=== PATIENT | male | born 1935 | race Caucasian/White ===

== ENCOUNTER 2016-07-21 21:34 | Inpatient (IN) | payer OTHER ==
[~2016-07-21] VITALS: Ht 165.1 cm; Wt 70.0 kg
[2016-07-21 21:59] LABS: POINT-OF-CARE METER ID UU14100415
[2016-07-21 23:00] LABS: ADD MIUA? NO; BILIRUBIN NEGATIVE; BLOOD NEGATIVE; COLOR YELLOW ((YELLOW)); GLUCOSE (STRIP) NEGATIVE; KETONES NEGATIVE; LEUKOCYTES NEGATIVE; NITRITE NEGATIVE; PROTEIN (STRIP) NEGATIVE; SPECIFIC GRAVITY 1.011 (1.000-1.030); UROBILINOGEN 0.2 MG/DL (0.2-1.0)
[2016-07-21 23:01] LABS: EOSINOPHIL (%) 0.4 % (0-5); IMMATURE GRANULOCYTE (%) 0.8 % (0.0-0.7); IMMATURE GRANULOCYTE COUNT 0.1 K/uL; INSTRUMENT ABS NEUTROPHIL CT 8.3 K/uL; MCH 29.5 PG (29.0-34.0); MCHC 32.6 G/DL (30.0-36.0); MCV 90.7 FL (86-99); MEAN PLAT.VOLUME 9.7 uM^3 (9.0-12.4); MONOCYTE (%) 7.3 % (3-12); MONOCYTE COUNT 0.7 K/uL (0-0.8); NEUTROPHIL (%) 81.5 % (45-76); NEUTROPHIL COUNT 8.3 K/uL (1.8-6.4); PLATELET COUNT 191 K/uL (156-360); RBC DIS.WIDTH-CV 13.1 % (11.8-14.6); RBC DIS.WIDTH-SD 43.5 % (39-53); RED BLOOD COUNT 3.86 M/uL (4.00-5.50); WHITE BLOOD COUNT 10.2 K/uL (4.1-10.2)
[2016-07-21 23:10] LABS: CHLORIDE 108 mEq/L (99-109); POTASSIUM 4.3 mEq/L (3.7-5.4); SODIUM 139 mEq/L (136-147)
[2016-07-21 23:12] LABS: GLUCOSE 78 mg/dL (70-99); PROTHROMBIN TIME 11.3 (9.2-11.2)
[2016-07-21 23:13] LABS: INTER. NORMALIZED RATIO 1.1
[2016-07-21 23:14] LABS: ANION GAP 8 MEQ/L (2-14)
[2016-07-21 23:16] LABS: GFR ESTIMATE (CALCULATED) 52 mL/min/
[2016-07-21 23:17] LABS: UREA NITROGEN (BUN) 24 mg/dL (9-23)
[2016-07-21 23:23] LABS: TROP-I INTERPRETATION NEGATIVE; TROPONIN-I < 0.01 ng/mL (0.0-0.30)
[2016-07-21 23:28] LABS: POINT-OF-CARE METER ID UU14100415; POINT-OF-CARE USER ID 608261302
[2016-07-22] MEDS ORDERED: LISINOPRIL5 MG PO
[2016-07-22] MEDS ORDERED: SERTRALINE HCL25 MG PO
[2016-07-22] MEDS ORDERED: FUROSEMIDE20 MG PO
[2016-07-22] MEDS ORDERED: PRAVASTATIN SOD80 MG PO (00:01)
[2016-07-22] MEDS ORDERED: LEVEMIR100 UNIT/2 SC (00:01)
[2016-07-22 00:16] LABS: POINT-OF-CARE METER ID UU14100415
[2016-07-22 01:09] LABS: POINT-OF-CARE METER ID UU14100415
[2016-07-22 03:05] LABS: POINT-OF-CARE METER ID UU14100415
[2016-07-22 03:56] LABS: POINT-OF-CARE METER ID UU14100415
[2016-07-22 04:37] VITALS: BP 147/71
[2016-07-22 04:55] LABS: ADD MIUA? NO; BILIRUBIN NEGATIVE; BLOOD NEGATIVE; COLOR YELLOW ((YELLOW)); GLUCOSE (STRIP) NEGATIVE; KETONES NEGATIVE; LEUKOCYTES NEGATIVE; NITRITE NEGATIVE; PROTEIN (STRIP) NEGATIVE; SPECIFIC GRAVITY 1.009 (1.000-1.030); UCUL ADDED? NO; UROBILINOGEN 0.2 MG/DL (0.2-1.0)
[2016-07-22 06:45] LABS: POINT-OF-CARE METER ID UU14174216
[2016-07-22 06:59] LABS: TROP-I INTERPRETATION NEGATIVE; TROPONIN-I < 0.01 ng/mL (0.0-0.30)
[2016-07-22 07:36] VITALS: BP 134/67
[2016-07-22 07:51] LABS: POINT-OF-CARE METER ID UU13113781
[2016-07-22 10:21] LABS: EOSINOPHIL COUNT 0.1 K/uL (0-0.3); HEMATOCRIT 34.9 % (38.0-50.0); IMMATURE GRANULOCYTE (%) 0.5 % (0.0-0.7); IMMATURE GRANULOCYTE COUNT 0.1 K/uL; INSTRUMENT ABS NEUTROPHIL CT 6.6 K/uL; LYMPHOCYTE COUNT 1.6 K/uL (1.0-2.8); MCH 30.1 PG (29.0-34.0); MCV 91.4 FL (86-99); MEAN PLAT.VOLUME 10.1 uM^3 (9.0-12.4); MONOCYTE (%) 9.9 % (3-12); MONOCYTE COUNT 0.9 K/uL (0-0.8); NEUTROPHIL (%) 70.8 % (45-76); NEUTROPHIL COUNT 6.6 K/uL (1.8-6.4); PLATELET COUNT 195 K/uL (156-360); RBC DIS.WIDTH-CV 13.2 % (11.8-14.6); RBC DIS.WIDTH-SD 43.7 % (39-53); RED BLOOD COUNT 3.82 M/uL (4.00-5.50); WHITE BLOOD COUNT 9.3 K/uL (4.1-10.2)
[2016-07-22 10:53] LABS: POINT-OF-CARE METER ID UU13113781
[2016-07-22 10:54] LABS: ANION GAP 9 MEQ/L (2-14); CHLORIDE 104 MEQ/L (99-109); POTASSIUM 4.8 MEQ/L (3.7-5.4); SAMPLE HEMOLYSIS CHECK 0; SAMPLE ICTERIC CHECK 0; SAMPLE LIPEMIA CHECK 0; SODIUM 137 MEQ/L (136-147)
[2016-07-22 11:00] LABS: GFR ESTIMATE (CALCULATED) 56 mL/min/; UREA NITROGEN (BUN) 20 mg/dL (9-23)
[2016-07-22 11:02] LABS: GLUCOSE 223 mg/dL (70-99)
[2016-07-22 12:00] LABS: POINT-OF-CARE METER ID UU14174216
[2016-07-22 12:05] VITALS: BP 138/67
[2016-07-22 13:00] LABS: TROP-I INTERPRETATION NEGATIVE; TROPONIN-I < 0.01 ng/mL (0.0-0.30)
[2016-07-22 14:30] LABS: POINT-OF-CARE METER ID UU14174216
[2016-07-22 16:34] LABS: POINT-OF-CARE METER ID UU14174216
[2016-07-22 16:36] VITALS: BP 132/72
[2016-07-22 19:02] VITALS: BP 138/63
[2016-07-22 20:40] LABS: POINT-OF-CARE METER ID UU14174216
[2016-07-22 23:00] VITALS: BP 138/82
[2016-07-23 03:00] VITALS: BP 128/64
[2016-07-23 07:15] VITALS: BP 156/80
[2016-07-23 07:51] LABS: HEMATOCRIT 36.6 % (38.0-50.0); MCH 29.9 PG (29.0-34.0); MCHC 32.8 G/DL (30.0-36.0); MCV 91.3 FL (86-99); MEAN PLAT.VOLUME 9.9 uM^3 (9.0-12.4); PLATELET COUNT 210 K/uL (156-360); RBC DIS.WIDTH-SD 43.7 % (39-53); RED BLOOD COUNT 4.01 M/uL (4.00-5.50); WHITE BLOOD COUNT 9.5 K/uL (4.1-10.2)
[2016-07-23 07:56] LABS: POINT-OF-CARE METER ID UU14174216
[2016-07-23 08:25] LABS: ANION GAP 7 MEQ/L (2-14); CHLORIDE 106 MEQ/L (99-109); GFR ESTIMATE (CALCULATED) 52 mL/min/; GLUCOSE 158 mg/dL (70-99); POTASSIUM 4.8 MEQ/L (3.7-5.4); SAMPLE HEMOLYSIS CHECK 0; SAMPLE ICTERIC CHECK 0; SAMPLE LIPEMIA CHECK 0; SODIUM 137 MEQ/L (136-147); UREA NITROGEN (BUN) 22 mg/dL (9-23)
[2016-07-23 11:40] LABS: POINT-OF-CARE METER ID UU14174216
[2016-07-23 12:33] VITALS: BP 130/71
[2016-07-23 16:00] VITALS: BP 133/65
[2016-07-23 16:25] LABS: POINT-OF-CARE METER ID UU14174216
[2016-07-23 20:29] VITALS: BP 114/63
[2016-07-23 21:48] LABS: POINT-OF-CARE METER ID UU13113781
[2016-07-24 00:07] VITALS: BP 128/66
[2016-07-24 05:17] LABS: CHLORIDE 110 mEq/L (99-109); POTASSIUM 4.5 mEq/L (3.7-5.4); SODIUM 140 mEq/L (136-147)
[2016-07-24 05:19] LABS: GLUCOSE 124 mg/dL (70-99)
[2016-07-24 05:21] LABS: ANION GAP 6 MEQ/L (2-14)
[2016-07-24 05:23] LABS: GFR ESTIMATE (CALCULATED) 44 mL/min/
[2016-07-24 05:24] LABS: UREA NITROGEN (BUN) 21 mg/dL (9-23)
[2016-07-24 07:23] VITALS: BP 130/69
[2016-07-24 11:25] VITALS: BP 152/71
[2016-07-24 11:39] LABS: POINT-OF-CARE METER ID UU13113781
[2016-07-24 15:55] VITALS: BP 151/69
[2016-07-24 16:15] LABS: POINT-OF-CARE METER ID UU14174216
[2016-07-24 20:46] LABS: POINT-OF-CARE USER ID ENVMNS
[2016-07-24 20:49] VITALS: BP 161/81
[2016-07-25 00:54] VITALS: BP 135/73
[2016-07-25 03:57] VITALS: BP 145/66
[2016-07-25 07:28] LABS: ANION GAP 9 MEQ/L (2-14); CHLORIDE 111 MEQ/L (99-109); GFR ESTIMATE (CALCULATED) 52 mL/min/; GLUCOSE 112 mg/dL (70-99); POTASSIUM 4.2 MEQ/L (3.7-5.4); SAMPLE HEMOLYSIS CHECK 0; SAMPLE ICTERIC CHECK 0; SAMPLE LIPEMIA CHECK 0; SODIUM 136 MEQ/L (136-147); UREA NITROGEN (BUN) 21 mg/dL (9-23)
[2016-07-25 08:11] LABS: POINT-OF-CARE METER ID UU14174216; POINT-OF-CARE USER ID ENVKC36
[2016-07-25 08:12] VITALS: BP 148/71
[2016-07-25 12:10] VITALS: BP 127/62
[2016-07-25] MEDS ORDERED: CLOTRIM ANTIFUN15 GM TP (12:14)
[2016-07-25] MEDS ORDERED: NABI650T PO (12:14)
[2016-07-25 12:19] LABS: POINT-OF-CARE METER ID UU13113781; POINT-OF-CARE USER ID ENVKC36
== END 2016-07-25 13:40 | disposition home or self-care (01) | DRG 684 ==
LOC: EME → EDBD 21:34 → EME 21:34 → EDOF 07-22 02:42 → 4EAST 07-22 02:42
PROVIDERS: Emergency Medicine; Hospitalist; Internal Medicine
DX: N17.9 Acute kidney failure, unspecified (principal); E11.649 Type 2 diabetes mellitus with hypoglycemia without coma; E78.5 Hyperlipidemia, unspecified; I10 Essential (primary) hypertension; I12.9 Hypertensive chronic kidney disease with stage 1 through stage 4 chronic kidney disease, or unspecified chronic kidney disease; E11.22 Type 2 diabetes mellitus with diabetic chronic kidney disease; N18.3 Chronic kidney disease, stage 3 (moderate); E86.0 Dehydration; F03.90 Unspecified dementia, unspecified severity, without behavioral disturbance, psychotic disturbance, mood disturbance, and anxiety; Z87.891 Personal history of nicotine dependence; Z79.4 Long term (current) use of insulin
CPT/HCPCS: 71010; 76770; 80048; 81003; 82800; 82948; 84484; 85025; 85027; 85610; 85730; 93005; J1644; J1815; J7030; J7040

== ENCOUNTER 2016-10-26 05:17 | Inpatient (IN) | payer OTHER ==
[~2016-10-26] VITALS: Ht 175.3 cm; Wt 76.5 kg
[~2016-10-26 05:17] MED LIST: CLOTRIM ANTIFUN15 GM TP; FUROSEMIDE20 MG PO; LEVEMIR100 UNIT/2 SC; LISINOPRIL5 MG PO; NABI650T PO; PRAVASTATIN SOD80 MG PO; SERTRALINE HCL25 MG PO
[2016-10-26 05:48] LABS: HEMATOCRIT 37.5 % (38.0-50.0); MCH 29.3 PG (29.0-34.0); MCHC 32.5 G/DL (30.0-36.0); MCV 90.1 FL (86-99); MEAN PLAT.VOLUME 10.3 uM^3 (9.0-12.4); PLATELET COUNT 153 K/uL (156-360); RBC DIS.WIDTH-CV 12.8 % (11.8-14.6); RBC DIS.WIDTH-SD 42.5 % (39-53); RED BLOOD COUNT 4.16 M/uL (4.00-5.50); WHITE BLOOD COUNT 13.2 K/uL (4.1-10.2)
[2016-10-26 05:59] LABS: CHLORIDE 108 mEq/L (99-109); POTASSIUM 4.5 mEq/L (3.7-5.4); SODIUM 139 mEq/L (136-147)
[2016-10-26 06:01] LABS: GLUCOSE 177 mg/dL (70-99)
[2016-10-26 06:02] LABS: ANION GAP 7 MEQ/L (2-14)
[2016-10-26 06:05] LABS: GFR ESTIMATE (CALCULATED) 48 mL/min/
[2016-10-26 06:06] LABS: UREA NITROGEN (BUN) 24 mg/dL (9-23)
[2016-10-26 06:08] LABS: CREATINE KINASE 428 IU/L (1-294); TOTAL CK 428 IU/L (1-294)
[2016-10-26 06:13] LABS: CK-MB 4.7 ng/mL (0.0-4.9)
[2016-10-26 08:03] LABS: ADD MIUA? YES; BILIRUBIN NEGATIVE; BLOOD MODERATE; COLOR YELLOW ((YELLOW)); GLUCOSE (STRIP) 50; KETONES NEGATIVE; LEUKOCYTES NEGATIVE; NITRITE NEGATIVE; PROTEIN (STRIP) 30; SPECIFIC GRAVITY 1.014 (1.000-1.030); UROBILINOGEN 0.2 MG/DL (0.2-1.0)
[2016-10-26 08:05] LABS: BACTERIA NONE SEEN /HPF; EPITHELIAL CELLS NONE SEEN /HPF; MUCUS NONE SEEN /LPF; RED BLOOD CELLS 0-5 /HPF (0-5); WHITE BLOOD CELLS NONE SEEN /HPF (0-5)
[2016-10-26 11:31] LABS: TROP-I INTERPRETATION NEGATIVE; TROPONIN-I 0.01 ng/mL (0.0-0.30)
[2016-10-26] MEDS ORDERED: TRESIBA FL100 UNIT/1 SC (11:53)
[2016-10-26 12:07] VITALS: BP 152/89
[2016-10-26 15:18] VITALS: BP 160/90
[2016-10-26 17:20] LABS: TROP-I INTERPRETATION NEGATIVE; TROPONIN-I 0.02 ng/mL (0.0-0.30)
[2016-10-26 22:54] LABS: TROP-I INTERPRETATION NEGATIVE; TROPONIN-I 0.02 ng/mL (0.0-0.30)
[2016-10-27 00:53] VITALS: BP 149/73
[2016-10-27 07:23] LABS: ANION GAP 6 MEQ/L (2-14); CHLORIDE 111 MEQ/L (99-109); GFR ESTIMATE (CALCULATED) > 59 mL/min/; GLUCOSE 42 mg/dL (70-99); POTASSIUM 4.3 MEQ/L (3.7-5.4); SAMPLE HEMOLYSIS CHECK 0; SAMPLE ICTERIC CHECK 0; SAMPLE LIPEMIA CHECK 0; SODIUM 143 MEQ/L (136-147); UREA NITROGEN (BUN) 18 mg/dL (9-23)
[2016-10-27 08:01] VITALS: BP 128/61
[2016-10-27 08:41] LABS: HEMATOCRIT 35.5 % (38.0-50.0); MCH 29.2 PG (29.0-34.0); MCHC 32.1 G/DL (30.0-36.0); MEAN PLAT.VOLUME 10.8 uM^3 (9.0-12.4); PLATELET COUNT 166 K/uL (156-360); RBC DIS.WIDTH-CV 12.9 % (11.8-14.6); WHITE BLOOD COUNT 11.2 K/uL (4.1-10.2)
[2016-10-27 09:41] LABS: POINT-OF-CARE METER ID UU14174225
[2016-10-27 10:22] LABS: POINT-OF-CARE METER ID UU14174225
[2016-10-27 11:28] LABS: POINT-OF-CARE METER ID UU14174225
[2016-10-27 12:09] LABS: POINT-OF-CARE METER ID UU13113717
[2016-10-27 13:30] VITALS: BP 151/65
[2016-10-27 15:40] VITALS: BP 156/89
[2016-10-27 16:57] LABS: POINT-OF-CARE METER ID UU14174225
[2016-10-27 20:16] VITALS: BP 186/82
[2016-10-27 23:49] VITALS: BP 144/67
[2016-10-28 04:02] VITALS: BP 143/83
[2016-10-28 06:13] LABS: HEMATOCRIT 32.6 % (38.0-50.0); MCH 30.5 PG (29.0-34.0); MCHC 33.1 G/DL (30.0-36.0); MCV 92.1 FL (86-99); MEAN PLAT.VOLUME 10.7 uM^3 (9.0-12.4); PLATELET COUNT 153 K/uL (156-360); RBC DIS.WIDTH-CV 12.9 % (11.8-14.6); RBC DIS.WIDTH-SD 43.6 % (39-53); RED BLOOD COUNT 3.54 M/uL (4.00-5.50); WHITE BLOOD COUNT 6.8 K/uL (4.1-10.2)
[2016-10-28 06:37] LABS: ALKALINE PHOSPHATASE 58 IU/L (3-129); ANION GAP 6 MEQ/L (2-14); CHLORIDE 108 MEQ/L (99-109); CREATINE KINASE 244 IU/L (1-294); GFR ESTIMATE (CALCULATED) 48 mL/min/; POTASSIUM 4.1 MEQ/L (3.7-5.4); SAMPLE HEMOLYSIS CHECK 0; SAMPLE ICTERIC CHECK 0; SAMPLE LIPEMIA CHECK 0; SODIUM 138 MEQ/L (136-147); TOTAL BILIRUBIN 0.5 MG/DL (0.0-1.0); UREA NITROGEN (BUN) 22 mg/dL (9-23)
[2016-10-28 06:39] LABS: GLUCOSE 252 mg/dL (70-99)
[2016-10-28 07:38] VITALS: BP 144/80
[2016-10-28 11:17] VITALS: BP 153/85
[2016-10-28 11:18] LABS: POINT-OF-CARE METER ID UU14174225
[2016-10-28 15:18] VITALS: BP 173/95
[2016-10-28 16:27] LABS: POINT-OF-CARE METER ID UU14174225
[2016-10-28 20:00] VITALS: BP 184/83
[2016-10-28 21:36] LABS: POINT-OF-CARE METER ID UU14174225
[2016-10-28 23:54] VITALS: BP 163/83
[2016-10-29 04:15] VITALS: BP 162/88
[2016-10-29 06:11] LABS: HEMATOCRIT 34.5 % (38.0-50.0); MCHC 32.2 G/DL (30.0-36.0); MCV 90.1 FL (86-99); MEAN PLAT.VOLUME 10.5 uM^3 (9.0-12.4); PLATELET COUNT 170 K/uL (156-360); RBC DIS.WIDTH-CV 12.8 % (11.8-14.6); RBC DIS.WIDTH-SD 42.2 % (39-53); RED BLOOD COUNT 3.83 M/uL (4.00-5.50); WHITE BLOOD COUNT 8.8 K/uL (4.1-10.2)
[2016-10-29 06:51] LABS: ANION GAP 8 MEQ/L (2-14); CHLORIDE 111 MEQ/L (99-109); GFR ESTIMATE (CALCULATED) > 59 mL/min/; SAMPLE HEMOLYSIS CHECK 0; SAMPLE ICTERIC CHECK 0; SAMPLE LIPEMIA CHECK 0; SODIUM 141 MEQ/L (136-147); UREA NITROGEN (BUN) 20 mg/dL (9-23)
[2016-10-29 07:03] LABS: GLUCOSE 103 mg/dL (70-99)
[2016-10-29 07:39] VITALS: BP 188/84
[2016-10-29 11:07] VITALS: BP 182/87
[2016-10-29 11:13] LABS: POINT-OF-CARE METER ID UU14174225
[2016-10-29 15:08] VITALS: BP 119/80
[2016-10-29 16:35] LABS: POINT-OF-CARE METER ID UU13113717
[2016-10-29 22:34] LABS: POINT-OF-CARE METER ID UU14174225
[2016-10-29 23:42] VITALS: BP 125/65
[2016-10-30 01:23] LABS: POINT-OF-CARE METER ID UU13113717
[2016-10-30 05:35] LABS: POINT-OF-CARE METER ID UU13113717
[2016-10-30 06:18] LABS: HEMATOCRIT 35.8 % (38.0-50.0); MCH 28.9 PG (29.0-34.0); MCHC 31.8 G/DL (30.0-36.0); MCV 90.6 FL (86-99); MEAN PLAT.VOLUME 10.4 uM^3 (9.0-12.4); PLATELET COUNT 184 K/uL (156-360); RBC DIS.WIDTH-CV 12.9 % (11.8-14.6); RBC DIS.WIDTH-SD 42.8 % (39-53); RED BLOOD COUNT 3.95 M/uL (4.00-5.50); WHITE BLOOD COUNT 9.4 K/uL (4.1-10.2)
[2016-10-30 06:54] LABS: ANION GAP 8 MEQ/L (2-14); CHLORIDE 108 MEQ/L (99-109); GFR ESTIMATE (CALCULATED) 48 mL/min/; POTASSIUM 4.2 MEQ/L (3.7-5.4); SAMPLE HEMOLYSIS CHECK 0; SAMPLE ICTERIC CHECK 0; SAMPLE LIPEMIA CHECK 0; SODIUM 141 MEQ/L (136-147); UREA NITROGEN (BUN) 26 mg/dL (9-23)
[2016-10-30 06:55] LABS: GLUCOSE 271 mg/dL (70-99)
[2016-10-30 07:50] VITALS: BP 145/82
[2016-10-30 08:06] LABS: POINT-OF-CARE METER ID UU13113717
[2016-10-30 10:41] LABS: POINT-OF-CARE METER ID UU13113717
[2016-10-30 11:56] LABS: POINT-OF-CARE METER ID UU13113717
[2016-10-30 14:27] LABS: POINT-OF-CARE METER ID UU14174225
[2016-10-30 15:11] VITALS: BP 110/73
[2016-10-30 17:02] LABS: POINT-OF-CARE METER ID UU14174225
[2016-10-30 21:23] LABS: POINT-OF-CARE METER ID UU13113717
[2016-10-31 00:14] VITALS: BP 112/59
[2016-10-31 02:10] LABS: POINT-OF-CARE METER ID UU13113717
[2016-10-31 04:47] LABS: POINT-OF-CARE METER ID UU13113717
[2016-10-31 07:47] VITALS: BP 108/61
[2016-10-31 09:25] LABS: POINT-OF-CARE METER ID UU13113717
[2016-10-31 09:45] LABS: POINT-OF-CARE METER ID UU13113717
[2016-10-31 14:58] LABS: POINT-OF-CARE METER ID UU13113717
[2016-10-31] MEDS ORDERED: AMLODIPINE BESY10 MG PO (15:34)
[2016-10-31 16:03] VITALS: BP 137/73
[2016-10-31 17:41] LABS: POINT-OF-CARE METER ID UU13113717
[2016-11-01 01:00] VITALS: BP 134/76
[2016-11-01 07:45] VITALS: BP 182/78
[2016-11-01 08:59] VITALS: BP 136/72
== END 2016-11-01 14:31 | DRG 558 ==
LOC: EME → EDBD 05:17 → EDOF 10:26 → 5SOUTH 10:26 → ENRESERV 10:36 → 5SOUTH 11:38
PROVIDERS: Internal Medicine; Physician Assistant Medical
DX: M62.82 Rhabdomyolysis (principal); N17.9 Acute kidney failure, unspecified; E86.0 Dehydration; I12.9 Hypertensive chronic kidney disease with stage 1 through stage 4 chronic kidney disease, or unspecified chronic kidney disease; E11.22 Type 2 diabetes mellitus with diabetic chronic kidney disease; N18.3 Chronic kidney disease, stage 3 (moderate); R29.6 Repeated falls; F03.91 Unspecified dementia, unspecified severity, with behavioral disturbance; D64.9 Anemia, unspecified; D72.829 Elevated white blood cell count, unspecified; E11.65 Type 2 diabetes mellitus with hyperglycemia; E11.649 Type 2 diabetes mellitus with hypoglycemia without coma; G31.9 Degenerative disease of nervous system, unspecified; I45.10 Unspecified right bundle-branch block; I49.3 Ventricular premature depolarization; E78.5 Hyperlipidemia, unspecified; R94.31 Abnormal electrocardiogram [ECG] [EKG]; R07.81 Pleurodynia; M25.559 Pain in unspecified hip; Z66 Do not resuscitate; Z79.4 Long term (current) use of insulin; Z87.891 Personal history of nicotine dependence
CPT/HCPCS: 70450; 70551; 71010; 73502; 80048; 80053; 81003; 82550; 82553; 82607; 82746; 82948; 84443; 84484; 85027; 87040; 93005; 97530 GP; 99281; 99285; J1644; J1815; J7030

== ENCOUNTER 2016-11-16 01:50 | Inpatient (IN) | payer OTHER ==
[~2016-11-16] VITALS: Ht 162.6 cm; Wt 72.7 kg
[~2016-11-16 01:50] MED LIST changes: +AMLODIPINE BESY10 MG PO; +DUONEB 2.5-0.5 M3 ML AEROSOL; +FLORASTOR250 MG PO; +ROCEPHIN1 GM/50 ML IV; +TRESIBA FL100 UNIT/1 SC; +ZITHROMAX500 MG PO
[2016-11-16 03:06] LABS: HEMATOCRIT 37.8 % (38.0-50.0); MCHC 31.7 G/DL (30.0-36.0); MCV 91.3 FL (86-99); MEAN PLAT.VOLUME 10.6 uM^3 (9.0-12.4); PLATELET COUNT 217 K/uL (156-360); RBC DIS.WIDTH-CV 13.9 % (11.8-14.6); RBC DIS.WIDTH-SD 46.8 % (39-53); RED BLOOD COUNT 4.14 M/uL (4.00-5.50); WHITE BLOOD COUNT 18.6 K/uL (4.1-10.2)
[2016-11-16 03:14] LABS: INTER. NORMALIZED RATIO 1.2
[2016-11-16 03:17] LABS: PTT 29.1 SEC (25-37)
[2016-11-16 03:20] LABS: CHLORIDE 103 mEq/L (99-109); POTASSIUM 4.9 mEq/L (3.7-5.4); SODIUM 138 mEq/L (136-147)
[2016-11-16 03:24] LABS: ANION GAP 17 MEQ/L (2-14)
[2016-11-16 03:25] LABS: TOTAL BILIRUBIN 0.9 mg/dL (0.0-1.0)
[2016-11-16 03:26] LABS: ALKALINE PHOSPHATASE 94 IU/L (3-129); GFR ESTIMATE (CALCULATED) 22 mL/min/
[2016-11-16 03:27] LABS: TROP-I INTERPRETATION NEGATIVE; TROPONIN-I 0.04 ng/mL (0.0-0.30)
[2016-11-16 03:30] LABS: LIPASE 4 U/L (1.0-51.0)
[2016-11-16 03:51] LABS: GLUCOSE 477 mg/dL (70-99); UREA NITROGEN (BUN) 63 mg/dL (9-23)
[2016-11-16 05:16] LABS: ADD MIUA? YES; BILIRUBIN NEGATIVE; BLOOD MODERATE; COLOR AMBER ((YELLOW)); GLUCOSE (STRIP) 150; KETONES NEGATIVE; LEUKOCYTES NEGATIVE; NITRITE NEGATIVE; PROTEIN (STRIP) 100; SPECIFIC GRAVITY 1.019 (1.000-1.030); UROBILINOGEN 0.2 MG/DL (0.2-1.0)
[2016-11-16 05:30] LABS: BACTERIA NONE SEEN /HPF; EPITHELIAL CELLS RARE /HPF; MUCUS TRACE /LPF; RED BLOOD CELLS 0-5 /HPF (0-5); UCUL ADDED? YES; WHITE BLOOD CELLS CLUMP FEW /HPF (0-5)
[2016-11-16 08:36] VITALS: BP 125/57
[2016-11-16 08:37] LABS: INTERNAL CONTROL VALID? YES
[2016-11-16] MEDS ORDERED: TYLENOL REGULA325 MG PO (12:14)
[2016-11-16] MEDS ORDERED: AMLODIPINE BESY10 MG PO (12:21)
[2016-11-16 12:27] VITALS: BP 136/65
[2016-11-16 15:00] VITALS: BP 111/59
[2016-11-16 15:21] LABS: GLUCOSE 424 mg/dL (70-99)
[2016-11-16 16:07] LABS: HEMATOCRIT 34.5 % (38.0-50.0); MCH 29.1 PG (29.0-34.0); MCHC 31.6 G/DL (30.0-36.0); MEAN PLAT.VOLUME 10.5 uM^3 (9.0-12.4); PLATELET COUNT 190 K/uL (156-360); RBC DIS.WIDTH-CV 13.9 % (11.8-14.6); RBC DIS.WIDTH-SD 47.3 % (39-53); RED BLOOD COUNT 3.75 M/uL (4.00-5.50); WHITE BLOOD COUNT 22.9 K/uL (4.1-10.2)
[2016-11-16 16:24] LABS: ANION GAP 10 MEQ/L (2-14); GLUCOSE 324 mg/dL (70-99); SAMPLE HEMOLYSIS CHECK 0; SAMPLE ICTERIC CHECK 0; SAMPLE LIPEMIA CHECK 0; SODIUM 142 MEQ/L (136-147); UREA NITROGEN (BUN) 60 mg/dL (9-23)
[2016-11-16 16:40] LABS: CHLORIDE 111 MEQ/L (99-109); GFR ESTIMATE (CALCULATED) 31 mL/min/; POTASSIUM 3.8 MEQ/L (3.7-5.4)
[2016-11-16 16:54] LABS: POINT-OF-CARE METER ID UU13113725
[2016-11-16 17:28] VITALS: BP 133/60
[2016-11-16 17:31] LABS: POINT-OF-CARE METER ID UU13113725
[2016-11-16 18:15] LABS: POINT-OF-CARE METER ID UU13113725
[2016-11-16 20:41] VITALS: BP 139/68
[2016-11-17 00:07] LABS: BASE EXCESS -8.3 mEq/L (-3 to +3); BICARBONATE 21.5 mEq/L (22-26); CARBOXY HGB 1.5 % (0-5); METHEMOGLOBIN 1.4 % (0-1.5); PCO2 66 mm Hg (35-45); PO2 85 mm Hg (80-100)
[2016-11-17 00:08] LABS: COMMENTS - BLOOD GASES A+C+; DEVICE NRB; FI02 100 %; SITE LR; TOTAL RESP RATE 28 resp/min
[2016-11-17 00:09] LABS: pH 7.12 (7.35-7.45)
[2016-11-17 00:19] LABS: EOSINOPHIL (%) 0 % (0-5); HEMATOCRIT 35.7 % (38.0-50.0); IMMATURE GRANULOCYTE (%) 1.5 % (0.0-0.7); IMMATURE GRANULOCYTE COUNT 0.4 K/uL; INSTRUMENT ABS NEUTROPHIL CT 22.2 K/uL; LYMPHOCYTE COUNT 2.5 K/uL (1.0-2.8); MCH 29.1 PG (29.0-34.0); MCHC 31.4 G/DL (30.0-36.0); MCV 92.7 FL (86-99); MEAN PLAT.VOLUME 10.3 uM^3 (9.0-12.4); MONOCYTE (%) 8.2 % (3-12); MONOCYTE COUNT 2.2 K/uL (0-0.8); NEUTROPHIL (%) 80.9 % (45-76); NEUTROPHIL COUNT 22.2 K/uL (1.8-6.4); PLATELET COUNT 217 K/uL (156-360); RBC DIS.WIDTH-SD 47.9 % (39-53); RED BLOOD COUNT 3.85 M/uL (4.00-5.50); WHITE BLOOD COUNT 27.4 K/uL (4.1-10.2)
[2016-11-17 00:27] LABS: CHLORIDE 120 mEq/L (99-109); SODIUM 144 mEq/L (136-147)
[2016-11-17 00:31] LABS: ANION GAP 5 MEQ/L (2-14)
[2016-11-17 00:32] LABS: GLUCOSE 146 mg/dL (70-99); TOTAL BILIRUBIN 0.3 mg/dL (0.0-1.0)
[2016-11-17 00:33] LABS: ALKALINE PHOSPHATASE 79 IU/L (3-129); GFR ESTIMATE (CALCULATED) 32 mL/min/
[2016-11-17 00:34] LABS: UREA NITROGEN (BUN) 54 mg/dL (9-23)
[2016-11-17 00:35] VITALS: BP 114/69
[2016-11-17 01:00] VITALS: BP 113/81
[2016-11-17 01:30] VITALS: BP 128/76
[2016-11-17 01:48] LABS: BASE EXCESS -6.4 mEq/L (-3 to +3); BICARBONATE 19.1 mEq/L (22-26); CARBOXY HGB 1.4 % (0-5); METHEMOGLOBIN 1.8 % (0-1.5); PO2 89 mm Hg (80-100)
[2016-11-17 01:49] LABS: COMMENTS - BLOOD GASES A+C+; PCO2 37 mm Hg (35-45); SITE RR; pH 7.32 (7.35-7.45)
[2016-11-17 01:50] LABS: DEVICE VENT; FI02 50 %; MODE NIV; PEEP 6 CM/H20; PRES. SUPPORT 12 CM/H2O; TOTAL RESP RATE 21 resp/min
[2016-11-17 02:00] VITALS: BP 83/58
[2016-11-17 02:02] LABS: POINT-OF-CARE METER ID UU13113731
[2016-11-17 02:13] LABS: METH RESISTANT S AUREUS PCR NEGATIVE (NEGATIVE)
[2016-11-17 02:21] LABS: PROBE CHECK PASS; SPECIMEN PROCESSING CONTROL PASS
[2016-11-17 03:00] VITALS: BP 124/63
[2016-11-17 04:00] VITALS: BP 126/67
== END 2016-11-17 06:10 | DRG 871 ==
LOC: EME 01:50 → EDOF 04:43 → 4WEST 04:43 → ENRESERV 04:46 → 5EAST 05:58 → ENRESERV 11-17 00:20 → 4WEST 11-17 00:24
PROVIDERS: Emergency Medicine; Hospitalist; Internal Medicine
PROC: 5A0935Z Assistance with Respiratory Ventilation, Less than 24 Consecutive Hours (ICD-10-PCS; principal; 2016-11-17)
DX: A41.9 Sepsis, unspecified organism (principal); I12.9 Hypertensive chronic kidney disease with stage 1 through stage 4 chronic kidney disease, or unspecified chronic kidney disease; E78.00 Pure hypercholesterolemia, unspecified; E11.22 Type 2 diabetes mellitus with diabetic chronic kidney disease; Z66 Do not resuscitate; J18.9 Pneumonia, unspecified organism; N17.9 Acute kidney failure, unspecified; F32.9 Major depressive disorder, single episode, unspecified; R65.20 Severe sepsis without septic shock; J96.01 Acute respiratory failure with hypoxia; J90 Pleural effusion, not elsewhere classified; N18.3 Chronic kidney disease, stage 3 (moderate); E78.5 Hyperlipidemia, unspecified; D64.9 Anemia, unspecified; Y95 Nosocomial condition; G30.9 Alzheimer's disease, unspecified; D72.829 Elevated white blood cell count, unspecified; I25.10 Atherosclerotic heart disease of native coronary artery without angina pectoris; E86.1 Hypovolemia; F02.80 Dementia in other diseases classified elsewhere, unspecified severity, without behavioral disturbance, psychotic disturbance, mood disturbance, and anxiety; E11.00 Type 2 diabetes mellitus with hyperosmolarity without nonketotic hyperglycemic-hyperosmolar coma (NKHHC); E87.2 Acidosis; E86.0 Dehydration; G20 Parkinson's disease; H55.00 Unspecified nystagmus; Z95.5 Presence of coronary angioplasty implant and graft; Z87.891 Personal history of nicotine dependence; Z79.4 Long term (current) use of insulin; Z95.0 Presence of cardiac pacemaker; Z51.5 Encounter for palliative care
CPT/HCPCS: 36600; 70450; 71010; 76770; 80048; 80048 91; 80053; 81003; 82010; 82803; 82947 91; 82948; 83605; 83630; 83690; 83880; 84484; 85025; 85027; 85610; 85730; 87040; 87070; 87086; 87205; 87449; 87493; 87502; 87641; 92610 GN; 93005; 94002; 94760; 94799; 99202; 99281; 99285; J0692; J0696; J1644; J1815; J1940; J1956; J3370; J7030; J7050; J7120